=== PATIENT | male | born 1955 | race Caucasian/White ===

== ENCOUNTER 2025-02-02 08:23 | Day surgery (SDC) | payer MEDICARE, OTHER ==
[~2025-02-02 08:23] MED LIST: propofoL 500 MG/50 ML 50 ML ONE
[2025-02-02] MEDS: Lactated Ringers 1,000 ML IV SCH (08:42)
[2025-02-02] MEDS ORDERED: Propofol 200 MG/20 ML SDV ONE (10:54)
[2025-02-02 11:27] VITALS: PULSE 66
[2025-02-02 12:30] VITALS: BP 133/76
== END 2025-02-02 11:45 | disposition home or self-care (01) ==
LOC: MW.SDS 08:23
PROVIDERS: ATTEND Surgery
DX: Z12.11 Encounter for screening for malignant neoplasm of colon (principal); D12.6 Benign neoplasm of colon, unspecified; K57.30 Diverticulosis of large intestine without perforation or abscess without bleeding; Z86.0100 Personal history of colon polyps, unspecified; I10 Essential (primary) hypertension; J44.9 Chronic obstructive pulmonary disease, unspecified; E78.00 Pure hypercholesterolemia, unspecified; K21.9 Gastro-esophageal reflux disease without esophagitis; F17.210 Nicotine dependence, cigarettes, uncomplicated; Z79.899 Other long term (current) drug therapy; Z88.8 Allergy status to other drugs, medicaments and biological substances
CPT/HCPCS: 45380; 88305; J2704; J7120; 00811